=== PATIENT | female | born 1950 | race Caucasian/White ===

== ENCOUNTER → 2023-09-07 13:09 | Outpatient (REF) | payer OTHER, SELFPAY | LOC: RAD 13:09 | PROVIDERS: ATTENDING PHYSICIAN Internal Medicine Geriatric Medicine | DX: Z87.19 Personal history of other diseases of the digestive system (principal); R14.0 Abdominal distension (gaseous) | CPT/HCPCS: 74022 ==

== ENCOUNTER → 2023-11-06 10:13 | Outpatient (REF) | payer OTHER, SELFPAY | LOC: RCS 10:13 | PROVIDERS: ATTENDING PHYSICIAN Internal Medicine Cardiovascular Disease; FAMILY PHYSICIAN Internal Medicine Geriatric Medicine | DX: E78.5 Hyperlipidemia, unspecified (principal); I51.81 Takotsubo syndrome; R01.1 Cardiac murmur, unspecified; Z01.810 Encounter for preprocedural cardiovascular examination | CPT/HCPCS: 93306 ==

== ENCOUNTER → 2023-12-04 13:35 | Outpatient (REF) | payer OTHER, SELFPAY | LOC: HWRAD 13:35 | PROVIDERS: ATTENDING PHYSICIAN Internal Medicine Geriatric Medicine | DX: R79.89 Other specified abnormal findings of blood chemistry (principal) | CPT/HCPCS: 76700 ==

== ENCOUNTER 2024-09-04 13:32 | Emergency (ER) | payer OTHER, SELFPAY ==
[2024-09-04 13:38] VITALS: BP 191/103
--- NOTE | 2024-09-04 14:21 | ED.GENMED ---
History of Present Illness
<Ann Marie Anderson NP - Last Filed: 09/04/24 16:10>
General
Chief Complaint: Chest Pain
Source: patient
Exam Limitations: none
Time Seen by Provider: 09/04/24 14:05
Nursing documentation reviewed up to this point in time: agreed with
History of Present Illness
History of Present Illness:
Patient to ED with complaint of chest tightness, palpitations, elevated BP. Symptoms started last PM. SHe went to cardiology office this AM and was referred to the ED. Denies n/v/diaphoresis. Reports fatigue, headache. To ED accompainied by
family.
Past History
<Ann Marie Anderson TEST ENGINE MECHANIC - Last Filed: 09/04/24 16:10>
Past History
ED Past Medical History: HTN, Hypercholesterolemia and Hypothyroidism
ED Past Surgical History: Bowel resection, Cholecystectomy and Gynecological (hysterectomy)
Social History
Tobacco: Non-smoker
Drug: None
Review of Systems
<Ann Marie Anderson NP - Last Filed: 09/04/24 16:10>
Review of Systems
Allergies reviewed?: Yes
All Other Systems: ROS reviewed and negative except as documented in HPI and ROS
Constitutional: Reports fatigue
EENT: Reports no symptoms
Respiratory: Reports no symptoms
Cardiac: Reports palpitations and other (chest tightness)
ABD/GI: Reports no symptoms
: Reports no symptoms
Musculoskeletal: Reports no symptoms
Skin: Reports no symptoms
Neurological: Reports headache
Psychiatric: Reports no symptoms
Phy Exam
<Ann Marie Anderson NP - Last Filed: 09/04/24 16:10>
General Physical Exam
General Presentation: well appearing and no apparent distress
General age: appears stated age
General Skin: warm and dry
General Habitus: normal
General Mental: alert
General Hydration: appears well hydrated
Cardiovascular Exam
Cardiovascular Exam: regular rate/rhythm and no edema
Pulmonary Exam
Pulmonary Exam: lungs clear, no respiratory distress, chest non tender and no cough
Gastrointestinal Exam
Gastrointestinal Exam: normal bowel sounds, non tender and soft
Musculoskeletal Exam
Musculoskeletal Exam: full ROM, no edema and neuro vasc intact
Skin Exam
Skin Exam: normal color, warm/dry and no rash
Psychiatric Exam
Psychiatric Exam: normal mood/affect
Scores
<Ann Marie Anderson NP - Last Filed: 09/04/24 16:10>
Heart Score for Chest Pain Patients
STEMI patient?: No
History: Moderately Suspicious
ECG: Normal
Age: >45 - <65 years
Risk Factors: >/= 3 Risk Factors or History of CAD
Troponin: </= Normal Limit
Heart Score for Chest Pain Patients: 4
Heart Score Risk: 20.3% MACE over next 6 weeks
Course
<Ann Marie Anderson NP - Last Filed: 09/04/24 16:10>
Orders/Labs/Results
Orders:
Orders
09/04/24 13:34
EKG [Electrocardiogram (*1)] Urgent
Reason for Study: Chest Pain
EKG- Treatment ONCE
09/04/24 14:16
Complete Blood Count/With Diff Urgent
Comprehensive Metabolic Panel Urgent
Troponin I Urgent
09/04/24 14:27
Metoprolol [Lopressor] 5 mg IV NOW STA
Abnormal Lab Results
09/04/24
14:16
WBC 12.4 H 10^3/uL
(4.8-10.8)
MCH 32.5 H pg
(27.0-31.0)
Absolute Neuts (auto) 7.0 H 10^3/uL
(1.4-6.5)
Absolute Lymphs (auto) 4.6 H 10^3/uL
(1.2-3.4)
Absolute Monos (auto) 0.7 H 10^3/uL
(0.1-0.6)
AST 59 H U/L
(14-36)
ALT 72 H U/L
(0-35)
Albumin 5.1 H g/dl
(3.5-5.0)
09/04/24 14:16
09/04/24 14:16
Vital Signs
Initial and Last Documented VS:
Initial Vital Signs
Temp Pulse Resp BP Pulse Ox
97.9 F 91 16 191/103 98
09/04/24 13:38 09/04/24 13:38 09/04/24 13:38 09/04/24 13:38 09/04/24 13:38
Last Documented Vital Signs
Temp Pulse Resp BP Pulse Ox
97.9 F 91 16 191/103 98
09/04/24 13:38 09/04/24 13:38 09/04/24 13:38 09/04/24 13:38 09/04/24 13:38
Somlt;Bernard Garza, DO - Last Filed: 09/04/24 15:52>
Orders/Labs/Results
Orders:
Orders
09/04/24 13:34
EKG [Electrocardiogram (*1)] Urgent
Reason for Study: Chest Pain
EKG- Treatment ONCE
09/04/24 14:16
Complete Blood Count/With Diff Urgent
Comprehensive Metabolic Panel Urgent
Troponin I Urgent
09/04/24 14:27
Metoprolol [Lopressor] 5 mg IV NOW STA
Abnormal Lab Results
09/04/24
14:16
WBC 12.4 H 10^3/uL
(4.8-10.8)
MCH 32.5 H pg
(27.0-31.0)
Absolute Neuts (auto) 7.0 H 10^3/uL
(1.4-6.5)
Absolute Lymphs (auto) 4.6 H 10^3/uL
(1.2-3.4)
Absolute Monos (auto) 0.7 H 10^3/uL
(0.1-0.6)
AST 59 H U/L
(14-36)
ALT 72 H U/L
(0-35)
Albumin 5.1 H g/dl
(3.5-5.0)
09/04/24 14:16
09/04/24 14:16
Vital Signs
Initial and Last Documented VS:
Initial Vital Signs
Temp Pulse Resp BP Pulse Ox
97.9 F 91 16 191/103 98
09/04/24 13:38 09/04/24 13:38 09/04/24 13:38 09/04/24 13:38 09/04/24 13:38
Last Documented Vital Signs
Temp Pulse Resp BP Pulse Ox
97.9 F 91 16 191/103 98
09/04/24 13:38 09/04/24 13:38 09/04/24 13:38 09/04/24 13:38 09/04/24 13:38
<Ann Marie Anderson TEST ENGINE MECHANIC - Last Filed: 09/04/24 16:10>
*Critical Care Note
Total Time (30-74mins, 75-104mins- exclusive of procedures): Not Applicable
<Ann Marie Anderson NP - Last Filed: 09/04/24 16:10>
Update Note
Update Note:
Patient to ED wtih complaint of chest tightness, elevated BP, and palpitations. BP on arrival 190's/low 100's. Given Lopressor 5mg IV with good results. Reports improvement in her symptoms. Labs, EKG reviewed. No concerning findings. Troponin
neg. Will discharge home and she will follow up with cardiology in the AM. Given instructions on s/s to return to ED and she is agreeable to plan.
ED Attending Note
<Ann Marie Anderson NP - Last Filed: 09/04/24 16:10>
-
Portions of this chart may have been created with voice recognition software.� Occasional wrong word or��sound alike� substitutions may have occurred due to the inherent limitations of voice recognition software.
<Bernard Garza DO - Last Filed: 09/04/24 15:52>
ED Attending Note
Patient seen and examined by attending physician: Yes
I performed the substantive portion of visit, reviewed & personally made and approve the management plan that is documented in note by myself or KIAH.: Yes
ED Attending Note:
Seen with TEST ENGINE MECHANIC examined independently 74-year-old female history of Takotsubo cardiomyopathy, treated with beta-blockers, has had some stress lately related to the economy, felt some pressure rapid heart rate somewhat similar to her prior episode, she
feeling better now after another dose of beta-mireya, undetectable troponin,
Discharge Plan
Departure
Patient Disposition: Home (Routine Discharge)
Date of Disposition: 09/04/24
Time of Disposition: 16:04
Patient with high blood pressure during this ER visit?: No
Condition: Good
Covid-19: Not Applicable
Discharge Problem:
Chest tightness, Elevated blood pressure reading, Palpitations
Instructions: High Blood Pressure (DC), Chest Pain CBC Follow Up
Prescriptions:
No Action
levothyroxine 75 MCG tablet
75 mcg PO DAILY
conjugated estrogens [Premarin] 0.625 MG tablet
0.625 mg PO DAILY
montelukast 10 MG tablet
10 mg PO DAILY
loratadine 10 MG tablet
20 mg PO DAILY
rosuvastatin 5 MG tablet
5 mg PO DAILY
acetaminophen 325 MG tablet
650 mg PO Q4HPRN PRN (Reason: mild pain) 0RF
metoprolol succinate 50 MG tablet extended release 24 hr
50 mg PO HS Qty: 90 0RF
amoxicillin-pot clavulanate 1 TABLET tablet
1 tab PO Q12 Qty: 18 0RF
aspirin 81 MG tablet,delayed release (DR/EC)
81 mg PO DAILY Qty: 0 0RF
Referrals:
Theresa Braxton MD [Family Provider] -
Activity Restrictions/Additional Instructions:
Follow up with your cardiololgist in the AM. Return to the emergency department for any further concerns.
Interventions
Interventions:
*Risk Screen - Suicide Last Done: 09/04/24 13:42
*General Assessment Last Done: 09/04/24 13:42
*Neglect/Abuse Screening Last Done: 09/04/24 13:42
*ED COVID-19 Vaccine History Last Done: 09/04/24 15:57
ED- Cardiac Assessment Last Done: 09/04/24 15:00
ED- Neurological Assessment Last Done: 09/04/24 15:00
ED- Pulmonary Assessment Last Done: 09/04/24 15:00
Discharge Date and Time
Print Language: YI
[2024-09-04 14:24] LABS: % Basophils 0.3 % (0-2); % Eosinophils 0.3 % (0-6); % Immature Granulocytes 0.3 % (0-0.5); % Lymphocytes 36.8 % (20.5-51.1); % Monocytes 5.6 % (1.7-9.3); % Neutrophils 56.7 % (42.2-75.2); Absolute Lymphocytes 4.6 10^3/uL (1.2-3.4); Absolute Monocytes 0.7 10^3/uL (0.1-0.6); Hematocrit 42.6 % (37.0-47.0); Hemoglobin 15.1 g/dL (12.0-16.0); Mean Corp Hgb Conc. 35.4 g/dL (33.0-37.0); Mean Corpuscular Hgb 32.5 pg (27.0-31.0); Mean Corpuscular Volume 91.8 fL (81.0-99.0); Mean Platelet Volume 9.4 fL (7.4-10.4); Nucleated Red Blood Cells % 0 %; Platelet Count 231 10^3/uL (130-400); Red Blood Cell Count 4.64 10^6/uL (4.20-5.40); Red Cell Dist. Width 12.2 % (11.5-14.5); White Blood Cell Count 12.4 10^3/uL (4.8-10.8)
[2024-09-04 14:55] LABS: Blood Urea Nitrogen 15 mg/dl (7-17); Glucose 95 mg/dl (70-99); eGFR > 60.00
[2024-09-04 14:56] LABS: ALT (SGPT) 72 U/L (0-35); AST (SGOT) 59 U/L (14-36); Albumin 5.1 g/dl (3.5-5.0); Alkaline Phosphatase 76 U/L (38-126); Calcium 10 mg/dl (8.4-10.2); Carbon Dioxide 24 mmol/L (22-30); Chloride 106 mmol/L (98-107); Potassium 4.2 mmol/L (3.5-5.1); Sodium 142 mmol/L (135-145); Total Bilirubin 0.7 mg/dl (0.2-1.3); Total Protein 7.6 g/dl (6.3-8.2)
[2024-09-04] MEDS: LOPRESSOR 5 MG IV (14:56)
[2024-09-04 15:00] VITALS: BP 147/89
[2024-09-04 15:05] LABS: Troponin I < 0.012 ng/ml
[2024-09-04 16:00] VITALS: BP 148/79
== END 2024-09-04 16:14 | disposition home or self-care (01) ==
LOC: EMR 13:32
PROVIDERS: Nurse Practitioner; EMERGENCY PHYSICIAN Emergency Medicine; FAMILY PHYSICIAN Family Medicine
DX: R07.89 Other chest pain (principal); I10 Essential (primary) hypertension; R00.2 Palpitations; I51.81 Takotsubo syndrome; E03.9 Hypothyroidism, unspecified; E78.00 Pure hypercholesterolemia, unspecified
CPT/HCPCS: 96374; 99284; 80053; 84484; 85025; 93005

== ENCOUNTER → 2024-09-12 14:39 | Outpatient (REF) | payer OTHER, SELFPAY | LOC: HWRCS 14:39 | PROVIDERS: ATTENDING PHYSICIAN Internal Medicine Cardiovascular Disease; FAMILY PHYSICIAN Family Medicine | DX: R07.2 Precordial pain (principal) | CPT/HCPCS: 93306 ==